=== PATIENT | female | born 1990 | race African-American/Black ===

== ENCOUNTER 2021-05-14 13:47 | Inpatient (IN) | payer OTHER, SELFPAY ==
[2021-05-14] VITALS (17 sets, daily range): BP systolic 106–138; BP diastolic 69–84; PULSE 71–112; RESP 18–37; TEMP 36.3–37.3; O2SAT 89–97
--- NOTE | ~2021-05-14 | XR_ITS ---
XR chest 1V portable 05/14/2021 14:14 Indication: Shortness of breath and cough Procedure: AP portable chest Comparison: No prior studies for comparison. Findings: Patchy bilateral airspace disease, compatible with pneumonia. No pleural effusion or pneumo thorax. Heart size normal. No acute osseous abnormality. Impression: 1: Patchy bilateral airspace disease, compatible with pneumonia. Reviewed, dictated and finalized at location A. Impression: 1: Patchy bilateral airspace disease, compatible with pneumonia.
--- NOTE | 2021-05-14 13:52 | ECG_ITS ---
Measurements Intervals [place] Rate: 104 P: 42 SD: 115 QRS: 37 QRSD: 89 T: -8 QT: 327 QTc: 431 Interpretive Statements SINUS TACHYCARDIA WITH SHORT SD INTERVAL NONSPECIFIC ST & T-WAVE ABNORMALITY- INFERIOR LEADS BASELINE ARTIFACT- I, III, AVL BORDERLINE ECG Electronically Signed On 05-14-2021 15:04:02 CDT by Hima Henry D.O.
[2021-05-14 14:11] LABS: Basophils Percent Auto 0.3 % (0.2-1.2); Hematocrit 43.4 % (37.0-47.0); Immature Granulocyte Absolute 0.02 K/mm3 (0.00-0.031); Immature Granulocyte Percent A 0.3 % (0-0.5); Lymphocytes Percent Auto 33.2 % (18.3-44.2); Mean Corpuscular HGB Conc 32.3 g/dl (32-36); Mean Corpuscular Hemoglobin 29.1 pg (26-34); Mean Corpuscular Volume 90.2 fl (80-100); Mean Platelet Volume 10.1 fl (7.4-10.4); Monocytes Absolute Auto 0.8 K/mm3 (0.1-0.6); Monocytes Percent Auto 9.7 % (2.6-8.5); Neutrophils Absolute Auto 4.4 K/mm3 (1.3-6.7); Neutrophils Percent Auto 56.5 % (45.5-73.1); Platelet Count Result 308 k/mm3 (150-375); Red Blood Count 4.81 M/mm3 (4.2-5.4); Red Cell Distribution Width 13.1 % (11.5-14.5); White Blood Count 7.8 K/mm3 (4.5-10.0)
[2021-05-14 14:21] LABS: Anion Gap 12 mmol/L (8-16); Blood Urea Nitrogen 15 mg/dL (7-17); Calcium 9.1 mg/dL (8.4-10.2); Carbon Dioxide 24 mmol/L (22-30); Chloride 100 mmol/L (98-107); Estimated CRCL calculation 77 ml/min; Estimated Glomerular Filt Rate > 60; Glucose 106 mg/dL (65-110); Potassium 3.6 mmol/L (3.4-5.0); Sodium 136 mmol/L (137-145)
--- NOTE | 2021-05-14 14:57 | ED.GENADULT ---
HPI - General Adult General Chief complaint: Upper Respiratory Infection Stated complaint: sob, -taste or smell Time Seen by Provider: 05/14/21 14:47 Source: patient History of Present Illness HPI narrative: Patient is a 30 y/o female complaining of severe SOB for last 3 days. She states that walking or any activity worsens her SOB. She has a slight cough. She last her sense of taste 4-5 days ago. She has COVID test last Thursday (3 days ago), which was positive. She denies any fever. She reportedly had sats in 80s and was placed on oxygen via nasal canula. Related Data Home Medications Medication Instructions Recorded Confirmed albuterol 90 mcg INHALATION BID PRN 05/14/21 05/14/21 Allergies Allergy/AdvReac Type Severity Reaction Status Date / Time No Known Allergies Allergy Verified 05/14/21 18:22 Review of Systems Constitutional: Constitutional: Denies chills, Denies fever(s), Denies headache(s) and Denies weakness Eyes: Eyes: Denies blurry vision ENT: Denies headache(s) and Denies neck pain Cardiovascular: Cardiovascular: Denies chest pain and Reports dyspnea Respiratory: Respiratory: Reports cough and Reports dyspnea Gastrointestinal: Gastrointestinal: Denies abdominal pain, Denies diarrhea, Denies nausea and Denies vomiting Genitourinary: Genitourinary: Denies hematuria and Denies dysuria Musculoskeletal: Musculoskeletal: Denies back pain and Denies neck pain Neurologic: Denies headache(s) and Denies weakness [facility] Family History Family History (Updated 05/14/21 @ 18:24 by Shanthi Irwin RN) Mother Hypertension Lung cancer Social History Social History Smoking status: Never smoker Alcohol intake: never Substance use: never Substance use type: does not use Spiritual care concerns: No Exam Const: General: no acute distress and well developed Orientation/consciousness: oriented to person, oriented to place, oriented to time and patient oriented x3 HENMT: Head: normocephalic Ears: external ears normal General nose exam: Normal external nose present Eyes: General: appearance normal, both eyes and all related structures Conjunctivae: conjunctivae normal Neck: Neck: normal visual inspection and full ROM Chest: Chest palpation & inspection: normal inspection of the chest and no tenderness Resp: Effort & Inspection: normal respiratory effort Auscultation: clear to auscultation bilaterally Cardio: Rate: regular rate Rhythm: regular rhythm GI: GI Palp: No abdominal tenderness and Yes Soft to palpation Skin: General skin exam: normal color and turgor normal Neuro: General: oriented to person, oriented to place, oriented to time and patient oriented x3 Cognition (Neuro): normal cognition Extrem: General: normal to inspection, full ROM and no pedal edema Psych: Appearance: grossly normal Mental Status: mental status grossly normal Affect: normal affect Course Consultations Consultation #1: Discussed with Dr. Pereyra, who agrees to admit. Date: 05/14/21 Time: 14:53 Vital Signs Vital signs: Vital Signs Temperature 37.1 C 05/14/21 13:47 Pulse Rate 110 H 05/14/21 13:47 Respiratory Rate 32 H 05/14/21 13:47 Blood Pressure 131/78 05/14/21 13:47 Pulse Oximetry 89 L 05/14/21 13:47 Temperature 37.3 C 05/14/21 17:50 Pulse Rate 84 05/14/21 17:50 Respiratory Rate 20 05/14/21 17:50 Blood Pressure 138/74 05/14/21 17:50 Pulse Oximetry 97 05/14/21 18:24 Medical Decision Making Vital Signs Vital Signs: Vital Signs Temperature 37.1 C 05/14/21 13:47 Pulse Rate 110 H 05/14/21 13:47 Respiratory Rate 32 H 05/14/21 13:47 Blood Pressure 131/78 05/14/21 13:47 Pulse Oximetry 89 L 05/14/21 13:47 Temperature 37.3 C 05/14/21 17:50 Pulse Rate 84 05/14/21 17:50 Respiratory Rate 20 05/14/21 17:50 Blood Pressure 138/74 05/14/21 17:50 Pulse Oximetry 97 05/14/21 18:24
--- NOTE | 2021-05-14 15:19 | PC.NURSE ---
Called Becca in lab at 15:19, added on PT INR, hepatic, and alt
[2021-05-14 15:27] LABS: Alanine Aminotransferase 66 U/L (4-35); Albumin Level 4.5 g/dL (3.5-5.1); Alkaline Phosphatase 100 U/L (38-126); Aspartate Amino Transferase 70 U/L (14-36); Bilirubin,Total 1.3 mg/dL (0.2-1.3)
[2021-05-14 15:40] LABS: INR 0.9; Prothrombin Time 12.2 Seconds (11.1-14.7)
--- NOTE | 2021-05-14 16:22 | PM.IMHP ---
H&P: HPI History of Present Illness Date/Time: 05/14/21 16:22 Chief Complaint: Shortness of breath Narrative: Patient is a 30-year-old lady presenting with shortness of breath for the last 3 days, at onset of symptoms, she obtained a COVID test, which was positive. A couple days prior to being tested, she lost her sense of taste. She denies chest pain, however endorses some fever and chills. No other medical complaints, no other past medical history. 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 Review of Systems Constitutional: Constitutional: Reports as per HPI and Reports no additional constitutional complaints Cardiovascular: Cardiovascular: Denies chest pain and Denies palpitations Respiratory: Respiratory: Reports dyspnea and Reports dyspnea on exertion Gastrointestinal: Gastrointestinal: Denies abdominal pain and Denies bloating Musculoskeletal: Musculoskeletal: Denies no additional musculoskeletal complaints Integumentary/Breasts: Skin/Breast: Denies dry skin and Denies unusual bruising Neurologic: Denies confusion, Denies headache(s) and Denies numbness PMFSH Family History Family History (Updated 05/14/21 @ 18:24 by Shanthi Irwin RN) Mother Hypertension Lung cancer Social History Social History Smoking status: Never smoker Alcohol intake: never Substance use: never Substance use type: does not use Spiritual care concerns: No Meds Home Medications and Allergies Home Medications Medication Instructions Recorded Confirmed Type albuterol 90 mcg INHALATION BID PRN 05/14/21 05/14/21 History Allergies Allergy/AdvReac Type Severity Reaction Status Date / Time No Known Allergies Allergy Verified 05/14/21 18:22 Vital Signs Vital Signs - 24 hr 05/14/21 13:47 05/14/21 13:49 05/14/21 13:50 Temperature 98.7 F Pulse Rate 110 H 112 H 109 H Respiratory Rate 32 H 24 H 28 H Blood Pressure 131/78 131/78 Pulse Oximetry 89 L 05/14/21 13:55 05/14/21 14:00 05/14/21 14:01 Temperature Pulse Rate 109 H 107 H Respiratory Rate 37 H 34 H Blood Pressure 106/79 Pulse Oximetry 97 95 05/14/21 14:15 05/14/21 14:30 05/14/21 14:31 Temperature Pulse Rate 107 H 97 103 H Respiratory Rate 22 H 21 H 18 Blood Pressure 109/77 Pulse Oximetry 94 05/14/21 14:45 05/14/21 15:00 05/14/21 15:02 Temperature Pulse Rate 98 103 H 105 H Respiratory Rate 19 26 H 23 H Blood Pressure 110/83 Pulse Oximetry Exam Const: General: no acute distress Neck: Neck: no JVD Resp: Auscultation: clear to auscultation bilaterally, no crackles, no rales, no rhonchi and no wheezes Cardio: Rate: abnormal rate Rhythm: abnormal rhythm Heart sounds: no murmurs and no rubs GI: Inspection: non-distended GI Palp: Yes Soft to palpation and No Firmness to palpation present (GI) H&P: Results Labs Labs: Short CBC 05/14/21 Range/Units 13:59 WBC 7.8 (4.5-10.0) K/mm3 Hgb 14.0 (12.0-15.0) g/dL Hct 43.4 (37.0-47.0) % Plt Count 308 (150-375) k/mm3 BMP 05/14/21 13:59 Sodium 136 L Potassium 3.6 Chloride 100 Carbon Dioxide 24 BUN 15 Creatinine 1.00 Glucose 106 Calcium 9.1 Liver Function 05/14/21 Range/Units 13:59 Total Bilirubin 1.3 (0.2-1.3) mg/dL Direct Bilirubin 0.0 (0-0.3) mg/dL AST 70 H (14-36) U/L ALT 66
[2021-05-14 16:31] LABS: Add Urine Microscopic? YES; Appearance Urine Cloudy (Clear); Bilirubin Urine Negative (Negative); Blood Urine Negative (Negative); Color Urine Amber (Yellow); Glucose Urine UA Negative (Negative); Ketones Urine 2+ mg/dL (Negative); Leukocyte Esterase Ur Negative LEU/UL (Negative); Mucus Urine Moderate /lpf; Nitrate Urine Negative (Negative); Protein Urine 2+ mg/dL (Negative); RBC Urine 0-2 /hpf (0-2); Specific Grav Ur 1.027 (1.001-1.035); Squamous Epithelial Cell Urine Many /hpf (Few); WBC Urine 0-3 /hpf
--- NOTE | 2021-05-14 17:52 | PC.NURSE ---
This patient, Brittnee Gaitan, was admitted to [facility] Surg Room 309-01 on 05/14/21 @ 1750. Patient/family oriented to hospital policies and general routines including ID bracelet, bed and alarms, visiting hours, pain management, procedures, bathroom and other care routines, personal items, smoking policy, room service/diet, and visiting hours. Information on how to activate the Rapid Response Team has been discussed. Patient/Family are encouraged to report perceived risks to care and to ask questions if they do not understand what they are told or what they should do.
[2021-05-14] MEDS: DEXAMETHASONE SOD PHOS INJ 4 MG/ML VIAL 6 MG IV PUSH (17:57)
[2021-05-14] MEDS: REMDESIVIR 200 MG/NS 250 ML 200 MG/250 ML BAG 250 MG IVPB (17:57)
[2021-05-15] VITALS (10 sets, daily range): BP systolic 108–130; BP diastolic 62–89; PULSE 60–77; RESP 16–18; TEMP 35.9–36.6; O2SAT 93–97
[2021-05-15 06:24] LABS: Hematocrit 41.3 % (37.0-47.0); Hemoglobin 13.1 g/dL (12.0-15.0); Immature Granulocyte Absolute 0.04 K/mm3 (0.00-0.031); Immature Granulocyte Percent A 0.8 % (0-0.5); Lymphocytes Absolute Auto 1.32 K/mm3 (0.9-3.2); Lymphocytes Percent Auto 26.9 % (18.3-44.2); Mean Corpuscular HGB Conc 31.7 g/dl (32-36); Mean Corpuscular Hemoglobin 28.5 pg (26-34); Monocytes Absolute Auto 0.3 K/mm3 (0.1-0.6); Monocytes Percent Auto 5.1 % (2.6-8.5); Neutrophils Absolute Auto 3.3 K/mm3 (1.3-6.7); Neutrophils Percent Auto 67.2 % (45.5-73.1); Platelet Count Result 320 k/mm3 (150-375); Red Blood Count 4.59 M/mm3 (4.2-5.4); Red Cell Distribution Width 12.9 % (11.5-14.5); White Blood Count 4.9 K/mm3 (4.5-10.0)
[2021-05-15 06:40] LABS: Alanine Aminotransferase 79 U/L (4-35); Albumin Level 4.1 g/dL (3.5-5.1); Alkaline Phosphatase 104 U/L (38-126); Anion Gap 14 mmol/L (8-16); Aspartate Amino Transferase 92 U/L (14-36); Bilirubin,Total 0.9 mg/dL (0.2-1.3); Blood Urea Nitrogen 17 mg/dL (7-17); Carbon Dioxide 22 mmol/L (22-30); Chloride 100 mmol/L (98-107); Estimated CRCL calculation 95 ml/min; Estimated Glomerular Filt Rate > 60; Glucose 134 mg/dL (65-110); Magnesium 2.5 mg/dL (1.6-2.3); Potassium 4.4 mmol/L (3.4-5.0); Sodium 136 mmol/L (137-145)
[2021-05-15 07:08] LABS: INR 0.9; Prothrombin Time 11.9 Seconds (11.1-14.7)
[2021-05-15 08:11] LABS: Platelet Estimate Adequate (Adequate)
[2021-05-15] MEDS: REMDESIVIR 100 MG/NS 250 ML 100 MG/250 ML BAG 250 MG IVPB (09:32)
[2021-05-15] MEDS: ENOXAPARIN 40 MG/0.4 ML SYRINGE SUB-Q (09:32)
[2021-05-15] MEDS: DEXAMETHASONE SOD PHOS INJ 4 MG/ML VIAL 6 MG IV PUSH (09:32)
--- NOTE | 2021-05-15 10:31 | PM.IMPN ---
Progress Note: A&P Assessment and Plan (1) Acute respiratory failure with hypoxia: Code(s): J96.01 - Acute respiratory failure with hypoxia Status: Acute Assessment and Plan: Secondary to COVID-19 pneumonia. Found to be hypoxic upon presentation down to 89%. She has required up to 4 L supplemental O2. Currently requiring 2 L per nasal cannula and maintaining adequate oxygenation at 97% Continue with supplemental O2 as needed. Goal O2 sats 92% or above Treatment for COVID-19 as described below (2) Pneumonia due to COVID-19 virus: Code(s): U07.1 - COVID-19; J12.82 - Pneumonia due to coronavirus disease 2018 Status: Acute Assessment and Plan: Patient tested positive on 05/11/2021. CXR showed patchy bilateral airspace disease compatible with pneumonia. Continue Remdesivir for up to 5 days. Started on 05/14/2021. Monitor ALT while on remdesivir Continue dexamethasone, also started 05/14 Supportive care to include bronchodilators, expectorants, antipyretics, incentive spirometry Trend acute phase reactants Isolation precautions She has not been vaccinated for COVID-19. (3) Asthma: Qualifiers: Asthma severity: mild Asthma persistence: intermittent Asthma complication type: uncomplicated Qualified Code(s): J45.20 - Mild intermittent asthma, uncomplicated Code(s): J45.909 - Unspecified asthma, uncomplicated Status: Acute Assessment and Plan: Mild intermittent asthma, only requires use of albuterol every couple of weeks. Reports hospitalization for asthma >2 years ago. Continue home Symbicort b.i.d. She has not established with a PCP or iap displays analyst. Reports she has been using her brother's Symbicort and her mother's albuterol nebulizers She needs to establish with PCP who can prescribe her appropriate medications. Will provide a list. Unfortunately, underlying asthma puts her at risk for more severe course of COVID-19. Subjective Date/time seen: 05/15/21 10:31 Interval history: Date of service: 05/15/2021 Brittnee Gaitan is a previously healthy 30-year-old female who is seen in follow-up for COVID 19 pneumonia. She continues to complain of shortness of breath, unchanged since presentation. She is unable to take a deep breath. She endorses dyspnea on exertion. She denies cough or sputum production. She denies chest pain. Endorses anosmia and dysgeusia for several days. Feels that this might be improving and was able to taste some of her cereall today. She has very poor appetite and has not been eating much. Was able to tolerate some of her breakfast today. Denies nausea or vomiting. No abdominal pain. No diarrhea. She has been having regular bowel movements. She reports she has not been urinating as much in her urine is dark. She mentions that she has not really been drinking any water or other liquids. Denies dysuria or hematuria. Denies dizziness or lightheadedness. No sore throat, no sinus congestion. No headaches, body aches, fevers, or chills. Review of Systems Review of Systems: All systems reviewed & are unremarkable except as noted in HPI and below Exam Narrative: Ms Gaitan is a well-nourished, well-appearing 30-year-old female who is lying supine in bed. She appears comfortable and is in NARD. Neuro: awake, alert and oriented x4, speech clear, no focal neuro deficits noted HEENMT: normocephalic, atraumatic, EOMI, sclerae anicteric, moist oral mucosa Neck: supple, no lymphadenopathy Respiratory: Diminished breath sounds bilaterally without crackles, wheezes, or rhonchi, nonlabored breathing Cardio: regular rate, regular rhythm with S1-S2 Abdomen: nondistended, normoactive bowel sounds, soft, nontender to palpation Extremities: no edema, erythema, or tenderness to palpation, DP pulses 2+ bilaterally Skin: no rashes or lesions, warm and dry Psych: appropriate mood and affect, judgment and insight intact
[2021-05-15] MEDS: ALBUTEROL SULFATE (*SP) INHALER 2 PUFF INHALATION ×2 (14:31→22:12)
[2021-05-15 16:04] LABS: SARS-CoV-2 RNA PCR Positive
[2021-05-15] MEDS: guaiFENesin 12 HR 600 MG TABCR PO (20:12)
[2021-05-15] MEDS: BUDESONIDE/FORMOTEROL 80/4.5 MCG 6.9 GM INHALER (*SP) 2 PUFF INHALATION (22:19)
[2021-05-16] VITALS (11 sets, daily range): BP systolic 100–126; BP diastolic 44–64; PULSE 59–74; RESP 14–18; TEMP 36.2–36.7; O2SAT 96–99
[2021-05-16] MEDS: ALBUTEROL SULFATE (*SP) INHALER 2 PUFF INHALATION ×4 (02:37→23:10)
[2021-05-16 07:16] LABS: Hematocrit 41.4 % (37.0-47.0); Hemoglobin 13.1 g/dL (12.0-15.0); Mean Corpuscular HGB Conc 31.6 g/dl (32-36); Mean Corpuscular Hemoglobin 28.7 pg (26-34); Mean Corpuscular Volume 90.6 fl (80-100); Mean Platelet Volume 10.1 fl (7.4-10.4); Platelet Count Result 357 k/mm3 (150-375); Red Blood Count 4.57 M/mm3 (4.2-5.4); Red Cell Distribution Width 12.9 % (11.5-14.5); White Blood Count 8.6 K/mm3 (4.5-10.0)
[2021-05-16 07:28] LABS: Alanine Aminotransferase 95 U/L (4-35); Alkaline Phosphatase 89 U/L (38-126); Anion Gap 10 mmol/L (8-16); Aspartate Amino Transferase 54 U/L (14-36); Bilirubin,Total 0.7 mg/dL (0.2-1.3); Blood Urea Nitrogen 18 mg/dL (7-17); CRP 4.5 mg/dL (<1.0); Calcium 8.9 mg/dL (8.4-10.2); Carbon Dioxide 22 mmol/L (22-30); Chloride 107 mmol/L (98-107); Estimated CRCL calculation 95 ml/min; Estimated Glomerular Filt Rate > 60; Glucose 112 mg/dL (65-110); Lactate Dehydrogenase 788 U/L (313-618); Potassium 3.5 mmol/L (3.4-5.0); Sodium 139 mmol/L (137-145)
[2021-05-16] MEDS: BUDESONIDE/FORMOTEROL 80/4.5 MCG 6.9 GM INHALER (*SP) 2 PUFF INHALATION ×2 (07:57→23:11)
[2021-05-16 09:46] LABS: Prothrombin Time 13.3 Seconds (11.1-14.7)
[2021-05-16] MEDS: DEXAMETHASONE SOD PHOS INJ 4 MG/ML VIAL 6 MG IV PUSH (10:15)
[2021-05-16] MEDS: guaiFENesin 12 HR 600 MG TABCR PO ×2 (10:15→20:58)
[2021-05-16] MEDS: ENOXAPARIN 40 MG/0.4 ML SYRINGE SUB-Q (10:15)
[2021-05-16] MEDS: REMDESIVIR 100 MG/NS 250 ML 100 MG/250 ML BAG 250 MG IVPB (10:21)
--- NOTE | 2021-05-16 10:25 | PM.IMPN ---
Progress Note: A&P Assessment and Plan (1) Acute respiratory failure with hypoxia: Code(s): J96.01 - Acute respiratory failure with hypoxia Status: Acute Assessment and Plan: Secondary to COVID-19 pneumonia. Found to be hypoxic upon presentation down to 89%. She has required up to 4 L supplemental O2. Currently requiring 2 L per nasal cannula and maintaining adequate oxygenation >95% Continue with supplemental O2 as needed. Goal O2 sats 92% or above Treatment for COVID-19 as described below (2) Pneumonia due to COVID-19 virus: Code(s): U07.1 - COVID-19; J12.82 - Pneumonia due to coronavirus disease 2019 Status: Acute Assessment and Plan: Patient tested positive on 05/11/2021 at outside facility. CXR showed patchy bilateral airspace disease compatible with pneumonia. Testing performed here also positive 05/14. Continue Remdesivir for up to 5 days. Started on 05/14/2021. Monitor ALT while on remdesivir Continue dexamethasone, also started 05/14 Supportive care to include bronchodilators, expectorants, antipyretics, incentive spirometry Trend acute phase reactants Isolation precautions She has not been vaccinated for COVID-19. (3) Asthma: Qualifiers: Asthma complication type: uncomplicated Asthma persistence: intermittent Asthma severity: mild Qualified Code(s): J45.20 - Mild intermittent asthma, uncomplicated Code(s): J45.909 - Unspecified asthma, uncomplicated Status: Acute Assessment and Plan: Mild intermittent asthma, only requires use of albuterol every couple of weeks. Reports hospitalization for asthma >2 years ago. Continue home Symbicort b.i.d. She is not established with a PCP or card fixer. Reports she has been using her brother's Symbicort and her mother's albuterol nebulizers. She needs to establish with PCP who can prescribe her appropriate medications. Will provide a list. Unfortunately, underlying asthma puts her at risk for more severe course of COVID-19. Subjective Date/time seen: 05/16/21 10:25 Interval history: Date of service: 05/16/2021 Brittnee Gaitan is a previously healthy 30-year-old female who is seen in follow-up for COVID 19 pneumonia. She is feeling a little bit better today. Her shortness of breath at rest has improved a little bit and she is able to take deeper breaths. Continues to endorse dyspnea on exertion. No wheezing. No orthopnea or PND. Still with diminished sense of taste. She is tolerating her diet though and has been eating pretty well. Denies abdominal pain, nausea, vomiting, diarrhea. No urinary symptoms. No fever or chills. She has no additional concerns at this time. Review of Systems Review of Systems: All systems reviewed & are unremarkable except as noted in HPI and below Exam Narrative: Ms Gaitan is a well-nourished, well-appearing 30-year-old female who is lying supine in bed. She appears comfortable and is in NARD. Neuro: awake, alert and oriented x4, speech clear, no focal neuro deficits noted HEENMT: normocephalic, atraumatic, EOMI, sclerae anicteric, moist oral mucosa Neck: supple, no lymphadenopathy Respiratory: Diminished breath sounds bilaterally without crackles, wheezes, or rhonchi, nonlabored breathing Cardio: regular rate, regular rhythm with S1-S2 Abdomen: nondistended, normoactive bowel sounds, soft, nontender to palpation Extremities: no edema, erythema, or tenderness to palpation, DP pulses 2+ bilaterally Skin: no rashes or lesions, warm and dry Psych: appropriate mood and affect, judgment and insight intact Objective Data Vital Signs Vital Signs: Vital Signs - 24 hr 05/15/21 12:00 05/15/21 14:36 05/15/21 16:00 Temperature 97.5 F L 97.9 F Pulse Rate 60 71 Respiratory Rate 18 16 Blood Pressure 129/70 126/75 Pulse Oximetry 97 93 95 05/15/21 20:00 05/15/21 21:41 05/15/21 22:16 Temperature 96.7 F L Pulse Rate 71 64 Re
[2021-05-16] MEDS: ACETAMINOPHEN 325 MG TABLET 650 MG PO (20:58)
[2021-05-17] VITALS (9 sets, daily range): BP systolic 101–136; BP diastolic 50–70; PULSE 54–88; RESP 16–18; TEMP 36.1–36.4; O2SAT 92–99
[2021-05-17] MEDS: ALBUTEROL SULFATE (*SP) INHALER 2 PUFF INHALATION ×3 (02:58→21:28)
[2021-05-17 06:56] LABS: Hemoglobin 12.9 g/dL (12.0-15.0); Mean Corpuscular HGB Conc 31.5 g/dl (32-36); Mean Corpuscular Hemoglobin 28.9 pg (26-34); Mean Corpuscular Volume 91.9 fl (80-100); Mean Platelet Volume 10.1 fl (7.4-10.4); Platelet Count Result 387 k/mm3 (150-375); Red Blood Count 4.46 M/mm3 (4.2-5.4); Red Cell Distribution Width 12.9 % (11.5-14.5); White Blood Count 6.1 K/mm3 (4.5-10.0)
[2021-05-17 07:08] LABS: INR 1.1; Prothrombin Time 14.1 Seconds (11.1-14.7)
[2021-05-17 07:19] LABS: Alanine Aminotransferase 79 U/L (4-35); Albumin Level 3.8 g/dL (3.5-5.1); Alkaline Phosphatase 78 U/L (38-126); Anion Gap 8 mmol/L (8-16); Aspartate Amino Transferase 38 U/L (14-36); Bilirubin,Total 0.6 mg/dL (0.2-1.3); Blood Urea Nitrogen 15 mg/dL (7-17); CRP 2.6 mg/dL (<1.0); Calcium 8.7 mg/dL (8.4-10.2); Carbon Dioxide 26 mmol/L (22-30); Chloride 106 mmol/L (98-107); Estimated CRCL calculation 108 ml/min; Estimated Glomerular Filt Rate > 60; Glucose 105 mg/dL (65-110); Potassium 3.4 mmol/L (3.4-5.0); Sodium 140 mmol/L (137-145)
[2021-05-17] MEDS: BUDESONIDE/FORMOTEROL 80/4.5 MCG 6.9 GM INHALER (*SP) 2 PUFF INHALATION ×2 (08:53→21:29)
[2021-05-17] MEDS: guaiFENesin 12 HR 600 MG TABCR PO ×2 (10:00→21:25)
[2021-05-17] MEDS: DEXAMETHASONE SOD PHOS INJ 4 MG/ML VIAL 6 MG IV PUSH (10:00)
[2021-05-17] MEDS: REMDESIVIR 100 MG/NS 250 ML 100 MG/250 ML BAG 250 MG IVPB (10:17)
--- NOTE | 2021-05-17 11:33 | PM.IMPN ---
Progress Note: A&P Assessment and Plan (1) Acute respiratory failure with hypoxia: Code(s): J96.01 - Acute respiratory failure with hypoxia Status: Acute Assessment and Plan: Secondary to COVID-19 pneumonia. Found to be hypoxic upon presentation down to 89%. She has required up to 4 L supplemental O2. Currently requiring 1 L per nasal cannula and maintaining adequate oxygenation >95%. Continue with supplemental O2 as needed. Goal O2 sats 92% or above. Wean to goal Treatment for COVID-19 as described below (2) Pneumonia due to COVID-19 virus: Code(s): U07.1 - COVID-19; J12.82 - Pneumonia due to coronavirus disease 2019 Status: Acute Assessment and Plan: Patient tested positive on 05/11/2021 at outside facility. CXR showed patchy bilateral airspace disease compatible with pneumonia. Testing performed here also positive 05/14. Continue Remdesivir for up to 5 days. Started on 05/14/2021. Monitor ALT while on remdesivir. ALT 79 today. Continue dexamethasone, also started 05/14 Supportive care to include bronchodilators, expectorants, antipyretics, incentive spirometry Trend acute phase reactants Isolation precautions She has not been vaccinated for COVID-19. (3) Asthma: Qualifiers: Asthma severity: mild Asthma persistence: intermittent Asthma complication type: uncomplicated Qualified Code(s): J45.20 - Mild intermittent asthma, uncomplicated Code(s): J45.909 - Unspecified asthma, uncomplicated Status: Acute Assessment and Plan: Mild intermittent asthma, only requires use of albuterol every couple of weeks. Reports hospitalization for asthma >2 years ago. Continue home Symbicort b.i.d. 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 Reports she has been using her brother's Symbicort and her mother's albuterol nebulizers. She needs to establish with PCP who can prescribe her appropriate medications. List provided. Unfortunately, underlying asthma puts her at risk for more severe course of COVID-19. (4) DVT prophylaxis: Code(s): Z29.9 - Encounter for prophylactic measures, unspecified Status: Acute Assessment and Plan: Lovenox 40 mg daily ordered. Patient refused today, stating she does not like the way it makes her feel. Long discussion regarding risks of blood clots with underlying COVID-19 and need for appropriate DVT prophylaxis. Patient verbalized understanding, however still not agreeable to Lovenox despite being aware of need for appropriate DVT prophylaxis. Will proceed with SCDs and encourage ambulation as tolerated based on respiratory status. Informed her that SCDs are not first line DVT prophylaxis in COVID 19 positive patients. Subjective Date/time seen: 05/17/21 11:33 Interval history: Date of service: 05/17/2021 Brittnee Gaitan is a previously healthy 30-year-old female who is seen in follow-up for COVID 19 pneumonia. She is starting to little bit better. She continues to endorse shortness of breath and dyspnea on exertion but overall seems to be improving. She is not coughing. No sputum production. Denies wheezing. Continues to endorse anosmia and dysgeusia. Her appetite remains poor. She denies nausea or vomiting. No fevers or chills. No dizziness or lightheadedness. No abdominal pain. She has not had a bowel movement but is passing flatus. She denies urinary symptoms. She feels pretty tired. She has no additional concerns today. Review of Systems Review of Systems: All systems reviewed & are unremarkable except as noted in HPI and below Exam Narrative: Ms Gaitan is a well-nourished, well-appearing 30-year-old female who is lying supine in bed. She appears comfortable and is in NARD. Neuro: awake, alert and oriented x4, speech clear, no focal neuro deficits noted HEENMT: normocephalic, atraumatic, EOMI, sclerae anicteric, moist oral mucosa Neck: supple, no lymphaden
[2021-05-18] VITALS (10 sets, daily range): BP systolic 83–131; BP diastolic 48–86; PULSE 60–100; RESP 18–20; TEMP 36.7–37.2; O2SAT 90–97
[2021-05-18] MEDS: ALBUTEROL SULFATE (*SP) INHALER 2 PUFF INHALATION ×3 (02:23→13:50)
[2021-05-18 06:54] LABS: Hematocrit 41.8 % (37.0-47.0); Hemoglobin 13.5 g/dL (12.0-15.0); Mean Corpuscular HGB Conc 32.3 g/dl (32-36); Mean Corpuscular Volume 89.7 fl (80-100); Mean Platelet Volume 9.8 fl (7.4-10.4); Platelet Count Result 384 k/mm3 (150-375); Red Blood Count 4.66 M/mm3 (4.2-5.4); Red Cell Distribution Width 12.8 % (11.5-14.5); White Blood Count 6.1 K/mm3 (4.5-10.0)
[2021-05-18 07:23] LABS: Alanine Aminotransferase 63 U/L (4-35); Albumin Level 3.5 g/dL (3.5-5.1); Alkaline Phosphatase 78 U/L (38-126); Anion Gap 11 mmol/L (8-16); Aspartate Amino Transferase 30 U/L (14-36); Bilirubin,Total 0.6 mg/dL (0.2-1.3); Blood Urea Nitrogen 14 mg/dL (7-17); CRP 2.3 mg/dL (<1.0); Calcium 8.4 mg/dL (8.4-10.2); Carbon Dioxide 26 mmol/L (22-30); Chloride 105 mmol/L (98-107); Estimated CRCL calculation 95 ml/min; Estimated Glomerular Filt Rate > 60; Glucose 94 mg/dL (65-110); Lactate Dehydrogenase 612 U/L (313-618); Potassium 3.9 mmol/L (3.4-5.0); Sodium 142 mmol/L (137-145)
[2021-05-18 07:40] LABS: INR 1.1; Prothrombin Time 14.1 Seconds (11.1-14.7)
[2021-05-18] MEDS: guaiFENesin 12 HR 600 MG TABCR PO (09:38)
[2021-05-18] MEDS: DEXAMETHASONE SOD PHOS INJ 4 MG/ML VIAL 6 MG IV PUSH (09:38)
[2021-05-18] MEDS: REMDESIVIR 100 MG/NS 250 ML 100 MG/250 ML BAG 250 MG IVPB (09:44)
[2021-05-18] MEDS: BUDESONIDE/FORMOTEROL 80/4.5 MCG 6.9 GM INHALER (*SP) 2 PUFF INHALATION (10:25)
--- NOTE | 2021-05-18 13:54 | PCRCNOTE ---
HOME OXYGEN EVALUATION COMPLETE; PT. DOES NOT REQUIRE HOME OXYGEN. R.N. NOTIFIED OF THE RESULTS.
--- NOTE | 2021-05-18 15:04 | PM.DS ---
DS: Admitting Diagnosis Admitting Diagnosis COVID-19 pneumonia DS: Discharge Diagnosis Discharge Diagnosis (1) Acute respiratory failure with hypoxia: Code(s): J96.01 - Acute respiratory failure with hypoxia Status: Acute Assessment and Plan: Secondary to COVID-19 pneumonia. Found to be hypoxic upon presentation down to 89%. She required up to 4 L supplemental O2 and was slowly weaned to room air. Home oxygen trial performed on 05/18/2021 and she has no oxygen requirements at rest or with exertion Treatment for COVID-19 as described below (2) Pneumonia due to COVID-19 virus: Code(s): U07.1 - COVID-19; J12.82 - Pneumonia due to coronavirus disease 2019 Status: Acute Assessment and Plan: Patient tested positive on 05/11/2021 at outside facility. CXR showed patchy bilateral airspace disease compatible with pneumonia. Testing performed at this facility also positive 05/14. She completed 5 days of IV remdesivir. LFTs monitored while taking this medication. Completed 5 days of IV dexamethasone will continue with p.o. dexamethasone at home to complete a full 10 day course Supportive care provided including bronchodilators, expectorants, antipyretics, incentive spirometry Isolation precautions were implemented She has not been vaccinated for COVID-19. Informed her that she can receive her vaccine 90 days following acute illness. She will follow-up with PCP. (3) Asthma: Qualifiers: Asthma severity: mild Asthma persistence: intermittent Asthma complication type: uncomplicated Qualified Code(s): J45.20 - Mild intermittent asthma, uncomplicated Code(s): J45.909 - Unspecified asthma, uncomplicated Status: Acute Assessment and Plan: Mild intermittent asthma, only requires use of albuterol every couple of weeks. Reports hospitalization for asthma >2 years ago. States that she uses her brother's Symbicort at home b.i.d. 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 She needs to establish with a PCP who Kade prescribed per appropriate medications. She was given a list of local PCPs. Rescue albuterol inhaler prescribed (4) DVT prophylaxis: Code(s): Z29.9 - Encounter for prophylactic measures, unspecified Status: Acute Assessment and Plan: Lovenox 40 mg daily ordered. On 05/17/2021, she refused to continue with Lovenox, stating she does not like the way it makes her feel. Long discussion regarding risks of blood clots with underlying COVID-19 and need for appropriate DVT prophylaxis. Patient verbalized understanding, however still not agreeable to Lovenox despite being aware of need for appropriate DVT prophylaxis. His CTs were initiated and frequent ambulation as tolerated encouraged. Informed her that SCDs are not first line DVT prophylaxis in COVID 19 positive patients. DS: Summary Hospital Course Hospital Course: Date of admission: 05/14/2021 Date of discharge: 05/18/2021 Brittnee Gaitan is a 30-year-old female with a history of asthma who presented to the emergency department on 05/14/2021 with complaints of severe shortness of breath ongoing for 3 days, worsened with activity as well as loss of taste ongoing for 4 days. Reportedly tested positive for COVID-19 3 days prior to presentation. Upon presentation to the emergency department, she was mildly tachycardic and tachypneic, SpO2 89% and was placed on 3 L, CBC and BMP unremarkable, AST and ALT slightly elevated, and CXR showed patchy bilateral airspace disease compatible with pneumonia. She was admitted to the hospitalist service for further evaluation and management. Please see above for further details. She was treated with IV dexamethasone and Remdesivir given hypoxia. Her symptoms improved significantly and hypoxia resolved. Given lack of need for supplemental oxygen and symptomatic improvement, she was determined to no longer require inpatient care and was felt to be
== END 2021-05-18 18:50 | disposition home or self-care (01) | DRG 137 ==
LOC: ANHED 14:46 → ANH3MEDSUR 18:01
PROVIDERS: Admitting Provider Internal Medicine; Emergency Provider Emergency Medicine; Visit Provider Physician Assistant
DX: U07.1 COVID-19 (principal); J12.82 Pneumonia due to coronavirus disease 2019; J96.01 Acute respiratory failure with hypoxia; J45.20 Mild intermittent asthma, uncomplicated
CPT/HCPCS: 36415; 71045; 80048; 80053; 80076; 81001; 81025; 82728; 83615; 83735; 84100; 84460; 85025; 85027; 85610; 86140; 93005; 94618; 94640; 99291; A9270; C9803; J1100; J1650; U0003; U0005